=== PATIENT | male | born 1980 | race American Indian/Alaskan Native ===

== ENCOUNTER → 2018-06-21 | Outpatient (CLI) | payer OTHER ==
[~2018-06-21] MED LIST: BENADRYL IV ONE; BENADRYL ONE; PEPCID IV ONE; SOLU-Medrol IV ONE; SOLU-Medrol ONE; ZOFRAN IV ONE; ZOFRAN ONE
--- NOTE | 2018-06-21 16:12 | Event Note ---
Date: 06/21/18 Patient is a [id number] male who was seen by me in CT scanner. Patient received IV contrast for an outpatient CT and started having allergic reaction. Due to go to evaluate the patient patient is having some diffuse itching but no obvious rash lungs are clear to auscultation heart tones were normal. Patient was given IV Benadryl Pepcid Solu-Medrol and Zofran for some mild nausea patient has. Patient be watched for any further complications. Patient appears in stable condition at this time.
--- NOTE | 2018-06-21 17:59 | Cat Scan Report ---
FINAL REPORT EXAM: CT ABDOMEN WO/W CON HISTORY: INSULINOMA TECHNIQUE: Standard unenhanced followed by enhanced CT of the abdomen. Coronal and sagittal reconstruction was also performed. Multiple enhanced phases were also obtained. Contrast: 100 mL Omnipaque 350 given IV. Oral contrast given PRIORS: None. FINDINGS: No focal abnormality in the pancreas is identified. No abnormal enhancement or hypodensity is seen. Within the abdomen, the liver, spleen, pancreas, gallbladder, adrenal glands, and kidneys are unremarkable. No evidence for retroperitoneal lymphadenopathy is seen. The bowel loops have normal caliber. No soft tissue mass, fluid collection, inflammatory change, or free air is seen within the abdomen. The appendix is normal. Images through the upper abdomen include the lung bases which are expanded and clear. Bony structures show no focal abnormalities and are intact. IMPRESSION: No acute intra-abdominal process noted. No evidence for an insulinoma in the pancreas identified.
== END | disposition home or self-care (01) ==
LOC: CT 13:28
PROVIDERS: ATTEND Internal Medicine
DX: D37.8 Neoplasm of uncertain behavior of other specified digestive organs (principal)
CPT/HCPCS: 74170; J1200; J2405; J2930; Q9967